=== PATIENT | female | born 1995 | race Caucasian/White ===

== ENCOUNTER 2022-07-20 19:18 | Inpatient (IN) ==
[2022-07-20] MEDS ORDERED: SODIUM CHLORIDE 0.9% 1000ML 1,000 ML IV ONE (19:45)
[2022-07-20] MEDS ORDERED: DEXTROSE 5% IV ONE ×2 (19:48→20:49)
[2022-07-20] MEDS ORDERED: ACETYLCYSTEINE IV ONE ×2 (19:48→20:49)
[2022-07-20] MEDS ORDERED: ACTIVATED CHARCOAL/SORBITOL 25 GM/120 ML TUBE PO STA (19:48)
[2022-07-20] MEDS ORDERED: AcetylCYSTEINE IV 21 HR REGIMEN (>40KG) IV STA (19:48)
--- NOTE | 2022-07-20 19:48 | Emergency Department Note ---
Impression & Plan Suicide attempt by acetaminophen overdose, Depression ED Provider Note Name: QUEENIE DAN Age: 27 Sex: F Arrives Via: Walk-In Informant: Patient, Mother ED Provider: Rangel Simpson MD Chief Complaint: Suicide attempt Impression: As per impression above Medical Decision Makin-year-old female with a history of depression/anxiety/PTSD who has been having worsening anxiety/depression over the last few weeks and increasing her dose of Zoloft. Attempted suicide by Tylenol overdose. Reports 30 tablets of 500 mg by mouth. Given that she was empirically started on N-acetylcysteine as this would be a lethal dose of Tylenol she had taken. She was also given charcoal. EKG is unremarkable rest of her labs are unremarkable and a drug screen is negative. She has no evidence of neurologic deficit and vital signs are stable. Her initial Tylenol level was undetectable but this was within an hour of overdose. She was monitored over the next few hours and repeat Tylenol level at 4 hours from ingestion is well within the nomogram. At this point I did confirm with poison center who agrees that stopping NAC is reasonable. She is now medically cleared. All the rest of her labs are unremarkable as well. I do not see any indication for need of hospitalization on a medical basis. She will need to be admitted to a psychiatric facility given her significant attempt at killing herself. I discussed this with her and she is agreeable to voluntary hospitalization. She was signed out to Dr. Joshi pending placement. Prior Medical Record and Triage/Nursing Notes reviewed by Me Additional history obtained from mother Differentials:Overdose of Tylenol amongst other medications considered, electrolyte imbalance, EKG/cardiac arrhythmia, multiple other pathologies considered. Vital Signs: reviewed and remarkable for mildly tachycardic on arrival Interventions: IV saline lock, 1 L normal saline bolus IV, N-acetylcysteine 21- hour regimen begun Labs:Reviewed and remarkable for Tylenol level within normal range at 4 hours postingestion multiple other labs including LFTs are unremarkable. EKG:As per my interpretation. Indication overdose. Normal sinus rhythm at 97 bpm with a QTC of 444. There is no ectopy nor ischemia. No previous EKGs for comparison. Cardiac/Tele Monitoring: Cardiac Monitoring: An Order was placed for continuous cardiac monitoring. The monitor shows a rate of 90 with a normal sinus rhythm. Consults: [facility] 7:45pm 1.6.23: Get EKG, Labs (salicylate/tyl/lft/etc). Give Charcoal now. NAC at discretion of ED doc for now, confirm need at 4 hour Tylenol level. Reviewed findings with poison control at 12:45 AM on 07.21.22 and they agree that at this point patient would be considered medically clear that NAC can be stopped. Plan: Disposition: Signed out to overnight ED physician pending placement Condition: Good History of Present Illness:27-year-old female arrives after an overdose at home. Patient states she has been feeling increasingly depressed throughout the holidays. She had recently switched to Zoloft for antidepressant given her history of depression and PTSD. Patient states increasing depression to the point where she decided to kill her self tonight. She counted out 30 tablets of 500 mg Tylenol. She then took the tablets knowing this was enough to kill her based on her research. She also drank some alcohol with this but cannot remember what the alcohol was. Denies any other drug use. Denies any attempt to harm her self with her Zoloft or other medications. Patient denies anyone else harming her. No hallucinations. Denies any current symptoms other than feeling a bit lightheaded. Denies any nausea, vomiting abdominal pain, chest pain, shortness of breath or other concerning signs or symptoms. No recent medical issues. Past Medical History:Anxiety/depression/PTSD Family History:Notes familial history of depression without history of suicide in the family Social History:No regular alcohol use, no tobacco use, no drug use. 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 Home Medications:Zoloft Allergies:No known drug allergies Vitals:Blood Pressure: 129/76, Pulse 123, RR 20, T 36.7C, O2 96% on RA Physical Exam: GENERAL: Patient is sad appearing and in no distress. EYES: No scleral icterus, unremarkable pupils. RESPIRATORY: No dyspnea. Clear to auscultation and equal bilaterally. No wheeze, no rhonchi. CARDIOVASCULAR: Regular rate and rhythm.No murmurs, rubs, gallops appreciated. GASTROINTESTINAL: Abdomen soft, non-tender, no peritonitis.Bowel sounds positive.No masses appreciated. BACK: No midline tenderness, no CVA tenderness EXTREMITIES: Normal motion all extremities, no cyanosis, no edema. Old cutting scars left forearm NEUROLOGIC: Alert and oriented, no focal weakness SKIN: No rash, no jaundice, no diaphoresis. PSYCH: Sad, depressed, admits suicidal ideation with attempt GCS: 15 ED Course: Times/Reassessments: Patient stable heart rate is come down nicely and she is in no distress. Repeat evaluations her mother is gone home. Patient states she is feeling better no nausea no abdominal pain and is agreeable to hospitalization for psychiatric management. Observation: The patient was placed in observation status at 7:45 PM on 07.20.22. Patient was reassessed multiple times and kept on the monitor throughout the entirety of the observation stay. Patient was stable receiving IV fluids as well as N- acetylcysteine. Repeat evaluation at 12:45 AM on 07.21.22 patient is calm cooperative and in no distress. Her vital signs are unremarkable. She is having no nausea, abdominal pain or other concerning signs or symptoms. Her repeat Tylenol level at this point is within normal range. She is considered medically cleared and will be disposition to psychiatric placement pending at this time. A total medical observation time of 5 hours. Rangel Simpson MD Past Med/Surg History Social History Smoking Status: Current every day smoker Home Meds Home Medications Medication Instructions Recorded Confirmed sertraline 50 mg tablet 50 mg PO DAILY 07/20/22 07/20/22 Results & Data (ED) Vital Signs Vital Signs - 24 hr 07/20/22 19:19 07/20/22 20:30 07/20/22 21:00 Temperature 36.7 C Temperature Source Temporal Artery Scan Pulse Rate 123 H Pulse Rate [Apical] 95 H 98 H Pulse Rate from SpO2 Sensor Pulse Rhythm [Apical] Regular Regular Pulse Strength [Apical] Normal Normal Respiratory Rate 20 17 16 Respiratory Effort / Characteristics Non-Labored Respiratory Depth Normal Normal Respiratory Pattern Regular Regular Blood Pressure 129/76 Blood Pressure [Right Arm] 120/67 110/77 Blood Pressure Mean 93 Blood Pressure Mean [Right Arm] 84 88 Blood Pressure Position [Right Arm] Pulse Oximetry 96 99 99 Oxygen Delivery Method Room Air Room Air Room Air Sepsis Recent Fever Within 48 Hours No Sepsis New/Unexplained Change in Mental Status No Sepsis Action Taken by Nursing No Action Required 07/20/22 21:30 07/20/22 22:00 07/20/22 22:30 Temperature Temperature Source Pulse Rate Pulse Rate [Apical] 92 H 99 H 97 H Pulse Rate from SpO2 Sensor Pulse Rhythm [Apical] Regular Regular Regular Pulse Strength [Apical] Normal Normal Normal Respiratory Rate 16 18 16 Respiratory Effort / Characteristics Non-Labored Non-Labored Non-Labored Respiratory Depth Normal Normal Normal Respiratory Pattern Regular Regular Regular Blood Pressure Blood Pressure [Right Arm] 127/73 124/89 116/78 Blood Pressure Mean Blood Pressure Mean [Right Arm] 91 100 90 Blood Pressure Position [Right Arm] Lying Lying Lying Pulse Oximetry 98 97 96 Oxygen Delivery Method Room Air Room Air Room Air Sepsis Recent Fever Within 48 Hours Sepsis New/Unexplained Change in Mental Status Sepsis Action Taken by Nursing 07/20/22 23:00 07/20/22 23:30 07/20/22 23:35 Temperature Temperature Source Pulse Rate 98 H 85 87 Pulse Rate [Apical] Pulse Rate from SpO2 Sensor 96 H 86 86 Pulse Rhythm [Apical] Pulse Strength [Apical] Respiratory Rate 19 22 26 H Respiratory Effort / Characteristics Respiratory Depth Respiratory Pattern Blood Pressure 115/78 119/72 Blood Pressure [Right Arm] Blood Pressure Mean 90 87 Blood Pressure Mean [Right Arm] Blood Pressure Position [Right Arm] Pulse Oximetry 97 100 98 Oxygen Delivery Method Sepsis Recent Fever Within 48 Hours Sepsis New/Unexplained Change in Mental Status Sepsis Action Taken by Nursing Laboratory Data 07/20/22 19:53 07/20/22 19:53 Lab Results 07/20/22 07/20/22 07/20/22 Range/Units 19:40 19:40 19:40 WBC (4.8-10.8) K/ul RBC (3.93-5.22) M/uL Hgb (12.0-16.0) g/dl Hct (34.1-44.9) % MCV (80.0-100.0) fL MCH (25.0-34.0) pg MCHC (32.0-36.0) g/dL RDW Std Deviation (36.4-46.3) fL RDW Coeff of Lenin (11.5-14.5) % Plt Count (130-400) K/uL MPV (9.4-12.3) fL Immature Gran % (Auto) % Neut % (Auto) % Lymph % (Auto) % Hamlin % (Auto) % Eos % (Auto) % Baso % (Auto) % Neut # (Auto) (1.4-6.5) K/uL Lymph # (Auto) (1.2-3.4) K/uL Hamlin # (Auto) (0.24-0.82) K/uL Eos # (Auto) (0-0.50) K/uL Baso # (Auto) (0-0.2) K/uL Immature Gran # (Auto) (0.00-0.02) K/uL PT (9.0-12.0) Seconds INR (0.9-1.1) APTT (21.0-31.0) Seconds PTT Ratio Sodium (136-145) mmol/L Potassium (3.5-5.1) mmol/L Chloride (98-107) mmol/L Carbon Dioxide (21-32) mmol/L Anion Gap (3-11) BUN (6-23) mg/dl Creatinine (0.6-1.2) mg/dl Est Cr Clr Drug Dosing ml/min Est GFR ( Amer) ml/min Est GFR (Non-Af Amer) ml/min BUN/Creatinine Ratio (10-20) Glucose (70-99(Fasting)) mg/dl Calcium (8.5-10.1) mg/dl Total Bilirubin (0.2-1.0) mg/dl AST (13-39) U/L ALT (7-52) U/L Alkaline Phosphatase (34-104) U/L Total Protein (6.0-8.3) gm/dl Albumin (3.4-5.0) gm/dl Globulin (2.5-4.0) gm/dl Albumin/Globulin Ratio (0.9-2) TSH (0.300-4.500) uIu/ml Urine Color Yellow Urine Appearance Clear (Clear) Urine pH 6.0 (4.5-7.5) Ur Specific [place] 1.008 (1.000-1.030) Urine Protein Negative (Negative) Urine Glucose (UA) Negative (Negative) Urine Ketones Negative (Negative) Urine Blood Negative (Negative) Urine Nitrite Negative (Negative) Urine Bilirubin Negative (Negative) Urine Urobilinogen Negative (Negative) Ur Leukocyte Esterase Negative (Negative) Urine Test Negative (Negative) Salicylates (3.0-30) mg/dl Urine Opiates Screen Neg (Neg) Ur Methadone, Qual Neg (Neg) Acetaminophen (10-30) ug/ml Urine Barbiturates Neg (Neg) Ur Phencyclidine (PCP) Neg (Neg) U Amphetamin/Meth Scrn Neg (Neg) MDMA (Ecstasy) Screen Neg (Neg) U Benzodiazepines Scrn Neg (Neg) Ur Cocaine Metabolite Neg (Neg) U Marijuana (THC) Screen Neg (Neg) Ethyl Alcohol mg/dL (<10.0) mg/dl SARS-CoV-2, RNA, NAAT (NEGATIVE) 07/20/22 07/20/22 07/20/22 Range/Units 19:53 19:53 19:53 WBC 10.00 (4.8-10.8) K/ul RBC 4.51 (3.93-5.22) M/uL Hgb 13.7 (12.0-16.0) g/dl Hct 41.0 (34.1-44.9) % MCV 90.9 (80.0-100.0) fL MCH 30.4 (25.0-34.0) pg MCHC 33.4 (32.0-36.0) g/dL RDW Std Deviation 41.6 (36.4-46.3) fL RDW Coeff of Lenin 12.4 (11.5-14.5) % Plt Count 389 (130-400) K/uL MPV 10.7 (9.4-12.3) fL Immature Gran % (Auto) 0.3 % Neut % (Auto) 67.6 % Lymph % (Auto) 22.3 % Hamlin % (Auto) 6.2 % Eos % (Auto) 2.7 % Baso % (Auto) 0.9 % Neut # (Auto) 6.76 H (1.4-6.5) K/uL Lymph # (Auto) 2.23 (1.2-3.4) K/uL Hamlin # (Auto) 0.62 (0.24-0.82) K/uL Eos # (Auto) 0.27 (0-0.50) K/uL Baso # (Auto) 0.09 (0-0.2) K/uL Immature Gran # (Auto) 0.03 H (0.00-0.02) K/uL PT (9.0-12.0) Seconds INR (0.9-1.1) APTT (21.0-31.0) Seconds PTT Ratio Sodium 139 (136-145) mmol/L Potassium 3.0 L (3.5-5.1) mmol/L Chloride 106 (98-107) mmol/L Carbon Dioxide 26 (21-32) mmol/L Anion Gap 7 (3-11) BUN 9 (6-23) mg/dl Creatinine 0.71 (0.6-1.2) mg/dl Est Cr Clr Drug Dosing 124.6 ml/min Est GFR ( Amer) 135.3 ml/min Est GFR (Non-Af Amer) 116.7 ml/min BUN/Creatinine Ratio 12.7 (10-20) Glucose 92 (70-99(Fasting)) mg/dl Calcium 9.5 (8.5-10.1) mg/dl Total Bilirubin 0.3 (0.2-1.0) mg/dl AST 19 (13-39) U/L ALT 26 (7-52) U/L Alkaline Phosphatase 60 (34-104) U/L Total Protein 8.5 H (6.0-8.3) gm/dl Albumin 4.7 (3.4-5.0) gm/dl Globulin 3.8 (2.5-4.0) gm/dl Albumin/Globulin Ratio 1.2 (0.9-2) TSH 1.379 (0.300-4.500) uIu/ml Urine Color Urine Appearance (Clear) Urine pH (4.5-7.5) Ur Specific [place] (1.000-1.030) Urine Protein (Negative) Urine Glucose (UA) (Negative) Urine Ketones (Negative) Urine Blood (Negative) Urine Nitrite (Negative) Urine Bilirubin (Negative) Urine Urobilinogen (Negative) Ur Leukocyte Esterase (Negative) Urine Test (Negative) Salicylates (3.0-30) mg/dl Urine Opiates Screen (Neg) Ur Methadone, Qual (Neg) Acetaminophen (10-30) ug/ml Urine Barbiturates (Neg) Ur Phencyclidine (PCP) (Neg) U Amphetamin/Meth Scrn (Neg) MDMA (Ecstasy) Screen (Neg) U Benzodiazepines Scrn (Neg) Ur Cocaine Metabolite (Neg) U Marijuana (THC) Screen (Neg) Ethyl Alcohol mg/dL (<10.0) mg/dl SARS-CoV-2, RNA, NAAT (NEGATIVE) 07/20/22 07/20/22 07/20/22 Range/Units 19:53 19:53 19:53 WBC (4.8-10.8) K/ul RBC (3.93-5.22) M/uL Hgb (12.0-16.0) g/dl Hct (34.1-44.9) % MCV (80.0-100.0) fL MCH (25.0-34.0) pg MCHC (32.0-36.0) g/dL RDW Std Deviation (36.4-46.3) fL RDW Coeff of Lenin (11.5-14.5) % Plt Count (130-400) K/uL MPV (9.4-12.3) fL Immature Gran % (Auto) % Neut % (Auto) % Lymph % (Auto) % Hamlin % (Auto) % Eos % (Auto) % Baso % (Auto) % Neut # (Auto) (1.4-6.5) K/uL Lymph # (Auto) (1.2-3.4) K/uL Hamlin # (Auto) (0.24-0.82) K/uL Eos # (Auto) (0-0.50) K/uL Baso # (Auto) (0-0.2) K/uL Immature Gran # (Auto) (0.00-0.02) K/uL PT 10.4 (9.0-12.0) Seconds INR 1.0 (0.9-1.1) APTT 25.1 (21.0-31.0) Seconds PTT Ratio 0.9 Sodium (136-145) mmol/L Potassium (3.5-5.1) mmol/L Chloride (98-107) mmol/L Carbon Dioxide (21-32) mmol/L Anion Gap (3-11) BUN (6-23) mg/dl Creatinine (0.6-1.2) mg/dl Est Cr Clr Drug Dosing ml/min Est GFR ( Amer) ml/min Est GFR (Non-Af Amer) ml/min BUN/Creatinine Ratio (10-20) Glucose (70-99(Fasting)) mg/dl Calcium (8.5-10.1) mg/dl Total Bilirubin (0.2-1.0) mg/dl AST (13-39) U/L ALT (7-52) U/L Alkaline Phosphatase (34-104) U/L Total Protein (6.0-8.3) gm/dl Albumin (3.4-5.0) gm/dl Globulin (2.5-4.0) gm/dl Albumin/Globulin Ratio (0.9-2) TSH (0.300-4.500) uIu/ml Urine Color Urine Appearance (Clear) Urine pH (4.5-7.5) Ur Specific [place] (1.000-1.030) Urine Protein (Negative) Urine Glucose (UA) (Negative) Urine Ketones (Negative) Urine Blood (Negative) Urine Nitrite (Negative) Urine Bilirubin (Negative) Urine Urobilinogen (Negative) Ur Leukocyte Esterase (Negative) Urine Test (Negative) Salicylates < 3.0 L (3.0-30) mg/dl Urine Opiates Screen (Neg) Ur Methadone, Qual (Neg) Acetaminophen < 3 L (10-30) ug/ml Urine Barbiturates (Neg) Ur Phencyclidine (PCP) (Neg) U Amphetamin/Meth Scrn (Neg) MDMA (Ecstasy) Screen (Neg) U Benzodiazepines Scrn (Neg) Ur Cocaine Metabolite (Neg) U Marijuana (THC) Screen (Neg) Ethyl Alcohol mg/dL 47.5 H (<10.0) mg/dl SARS-CoV-2, RNA, NAAT (NEGATIVE) 07/20/22 07/20/22 Range/Units 20:58 23:34 WBC (4.8-10.8) K/ul RBC (3.93-5.22) M/uL Hgb (12.0-16.0) g/dl Hct (34.1-44.9) % MCV (80.0-100.0) fL MCH (25.0-34.0) pg MCHC (32.0-36.0) g/dL RDW Std Deviation (36.4-46.3) fL RDW Coeff of Lenin (11.5-14.5) % Plt Count (130-400) K/uL MPV (9.4-12.3) fL Immature Gran % (Auto) % Neut % (Auto) % Lymph % (Auto) % Hamlin % (Auto) % Eos % (Auto) % Baso % (Auto) % Neut # (Auto) (1.4-6.5) K/uL Lymph # (Auto) (1.2-3.4) K/uL [place]lin # (Auto) (0.24-0.82) K/uL Eos # (Auto) (0-0.50) K/uL Baso # (Auto) (0-0.2) K/uL Immature Gran # (Auto) (0.00-0.02) K/uL PT (9.0-12.0) Seconds INR (0.9-1.1) APTT (21.0-31.0) Seconds PTT Ratio Sodium (136-145) mmol/L Potassium (3.5-5.1) mmol/L Chloride (98-107) mmol/L Carbon Dioxide (21-32) mmol/L Anion Gap (3-11) BUN (6-23) mg/dl Creatinine (0.6-1.2) mg/dl Est Cr Clr Drug Dosing ml/min Est GFR ( Amer) ml/min Est GFR (Non-Af Amer) ml/min BUN/Creatinine Ratio (10-20) Glucose (70-99(Fasting)) mg/dl Calcium (8.5-10.1) mg/dl Total Bilirubin (0.2-1.0) mg/dl AST (13-39) U/L ALT (7-52) U/L Alkaline Phosphatase (34-104) U/L Total Protein (6.0-8.3) gm/dl Albumin (3.4-5.0) gm/dl Globulin (2.5-4.0) gm/dl Albumin/Globulin Ratio (0.9-2) TSH (0.300-4.500) uIu/ml Urine Color Urine Appearance (Clear) Urine pH (4.5-7.5) Ur Specific [place] (1.000-1.030) Urine Protein (Negative) Urine Glucose (UA) (Negative) Urine Ketones (Negative) Urine Blood (Negative) Urine Nitrite (Negative) Urine Bilirubin (Negative) Urine Urobilinogen (Negative) Ur Leukocyte Esterase (Negative) Urine Test (Negative) Salicylates (3.0-30) mg/dl Urine Opiates Screen (Neg) Ur Methadone, Qual (Neg) Acetaminophen 25 (10-30) ug/ml Urine Barbiturates (Neg) Ur Phencyclidine (PCP) (Neg) U Amphetamin/Meth Scrn (Neg) MDMA (Ecstasy) Screen (Neg) U Benzodiazepines Scrn (Neg) Ur Cocaine Metabolite (Neg) U Marijuana (THC) Screen (Neg) Ethyl Alcohol mg/dL (<10.0) mg/dl SARS-CoV-2, RNA, NAAT NEGATIVE (NEGATIVE) Administered Medications Discontinued Medications Acetylcysteine (Acetylcysteine Iv 21 Hr Regimen (>40kg)) 1 each IV NOW STA; Protocol Stop: 07/20/22 19:49 Last Admin: 07/21/22 01:10 Dose: Not Given Documented By: IRVIN Charcoal/Sorbitol (Activated Charcoal/Sorbitol 25 Gm/120 Ml Tube) 50 gm PO NOW STA Stop: 07/20/22 19:49 Last Admin: 07/20/22 20:13 Dose: 50 gm Documented By: YANG Sodium Chloride (Nss 1000ml) 1,000 mls @ 999 mls/hr IV .Q1H1M ONE Stop: 07/20/22 20:45 Last Infusion: 07/20/22 21:01 Dose: 0 mls/hr Documented By: Admin: 07/20/22 20:05 Dose: 999 mls/hr Documented By: YANG Acetylcysteine 11,520 mg/ (Dextrose) 257.6 mls @ 200 mls/hr IV ONCE ONE Stop: 07/20/22 21:05 Last Infusion: 07/20/22 21:32 Dose: 0 mls/hr Documented By: Admin: 07/20/22 20:25 Dose: 200 mls/hr Documented By: YANG Acetylcysteine 3,840 mg/ (Dextrose) 519.2 mls @ 125 mls/hr IV ONCE ONE Stop: 07/21/22 00:58 Last Admin: 07/20/22 21:33 Dose: 125 mls/hr Documented By: BETH Ondansetron HCl (Ondansetron Inj 2 Mg/Ml 2 Ml Vial) 4 mg IV NOW STA Stop: 07/20/22 20:00 Last Admin: 07/20/22 20:05 Dose: 4 mg Documented By: YANG Discharge Plan Visit Data Chief Complaint: Overdose (Intentional) Stated Complaint: REF BY DOC, POTENTIAL OVERDOSE ED Provider: Rangel Simpson Discharge Problem: Suicide attempt by acetaminophen overdose, Depression Forms Stand Alone Forms: [facility], Suicide Prevention Resources Prescriptions Prescriptions: No Action sertraline 50 mg tablet 50 mg PO DAILY Referrals Referrals: PCP,NO [Primary Care Provider] - : Suicide attempt by acetaminophen overdose Qualifiers: Encounter type: initial encounter Qualified Code(s): T39.1X2A - Poisoning by 4- Aminophenol derivatives, intentional self-harm, initial encounter Depression Qualifiers: Depression Type: major depressive disorder Major depression recurrence: recurrent Active/Remission status: currently active Major depression episode severity: severe Psychotic features: without psychotic features Qualified Code(s): F33.2 - Major depressive disorder, recurrent severe without psychotic features
[2022-07-20] MEDS ORDERED: ONDANSETRON INJ 2 MG/ML 2 ML VIAL IV STA (19:59)
[2022-07-20 20:04] LABS: Basophils # (auto) 0.09 K/uL (0-0.2); Basophils % (auto) 0.9 %; Eosinophils # (auto) 0.27 K/uL (0-0.50); Eosinophils % (auto) 2.7 %; Hemoglobin 13.7 g/dl (12.0-16.0); Immature Granulocytes # (auto) 0.03 K/uL (0.00-0.02); Immature Granulocytes % (auto) 0.3 %; Lymphocytes # (auto) 2.23 K/uL (1.2-3.4); Lymphocytes % (auto) 22.3 %; Mean Corpuscular Hemoglobin 30.4 pg (25.0-34.0); Mean Corpuscular Hgb Conc 33.4 g/dL (32.0-36.0); Mean Corpuscular Volume 90.9 fL (80.0-100.0); Mean Platelet Volume 10.7 fL (9.4-12.3); Monocytes # (auto) 0.62 K/uL (0.24-0.82); Monocytes % (auto) 6.2 %; Neutrophils # (auto) 6.76 K/uL (1.4-6.5); Neutrophils % (auto) 67.6 %; Platelet Count 389 K/uL (130-400); RDW Coefficient of Variation 12.4 % (11.5-14.5); RDW Standard Deviation 41.6 fL (36.4-46.3); Red Blood Count 4.51 M/uL (3.93-5.22)
[2022-07-20 20:22] LABS: Appearance Urine Clear (Clear); Bilirubin Urine Negative (Negative); Blood Urine Negative (Negative); Color Urine Yellow; Glucose Urine UA Negative (Negative); Ketones Urine Negative (Negative); Leukocyte Esterase Urine Negative (Negative); Nitrite Urine Negative (Negative); Protein Urine Negative (Negative); Specific Gravity Urine 1.008 (1.000-1.030); Urobilinogen Urine Negative (Negative)
[2022-07-20 20:23] LABS: Pregnancy Test, Urine Negative (Negative)
[2022-07-20 20:31] LABS: Acetaminophen < 3 ug/ml (10-30); Salicylate < 3.0 mg/dl (3.0-30)
[2022-07-20 20:45] LABS: Amphetamines+Metham, Urine Neg (Neg); Barbiturates, Urine Neg (Neg); Benzodiazepine, Urine Neg (Neg); Cocaine, Urine Neg (Neg); MDMA (Ecstacy), Urine Neg (Neg); Methadone, Urine Neg (Neg); Opiate, Urine Neg (Neg); Phencyclidine, Urine Neg (Neg)
[2022-07-20 20:46] LABS: Albumin Globulin Ratio 1.2 (0.9-2); Albumin Level 4.7 gm/dl (3.4-5.0); BUN Creatinine Ratio 12.7 (10-20); Bilirubin,Total 0.3 mg/dl (0.2-1.0); Calcium 9.5 mg/dl (8.5-10.1); Creatinine Clr Calc Pharmacy 124.6 ml/min; Est GFR (African American) 135.3 ml/min; Est GFR (Non-African American) 116.7 ml/min; Globulin 3.8 gm/dl (2.5-4.0); Total Protein 8.5 gm/dl (6.0-8.3)
[2022-07-20 23:43] LABS: Partial Thromboplastin Ratio 0.9; Partial Thromboplastin Time 25.1 Seconds (21.0-31.0); Prothrombin Time 10.4 Seconds (9.0-12.0)
[2022-07-21] MEDS ORDERED: DEXTROSE 5% IV ONE (00:49)
[2022-07-21] MEDS ORDERED: ACETYLCYSTEINE IV ONE (00:49)
--- NOTE | 2022-07-21 06:26 | Emergency Department Note ---
ED Visit Note Date and Time: 07/21/2022 620: Interval History: Sign out received from Dr. Simpson who reviewed details of the encounter. Patient was pending bed placement. The patient is a voluntary admission after a Tylenol overdose. Summary: Patient was re-evaluated at 230 and vital signs reviewed. The patient rested comfortably overnight. The patient requests a local facility. She is voluntary at this time. Disposition: The staff from [facility] will evaluate her after 715 this morning Case will be signed out to Dr. Cleaning. . : Suicide attempt by acetaminophen overdose Qualifiers: Encounter type: initial encounter Qualified Code(s): T39.1X2A - Poisoning by 4- Aminophenol derivatives, intentional self-harm, initial encounter Depression Qualifiers: Depression Type: major depressive disorder Major depression recurrence: recurrent Active/Remission status: currently active Major depression episode severity: severe Psychotic features: without psychotic features Qualified Code(s): F33.2 - Major depressive disorder, recurrent severe without psychotic features
[2022-07-21] MEDS ORDERED: hydrOXYzine HCl 25 MG TAB PO PRN ×2 (10:15)
[2022-07-21] MEDS ORDERED: BISMUTH SUBSALICYLATE LIQD 236 ML PO PRN (10:15)
[2022-07-21] MEDS ORDERED: MAGNESIUM HYDROXIDE SUSP 30 ML UDC PO PRN (10:15)
[2022-07-21] MEDS ORDERED: SODIUM CHLORIDE 0.65% NA SOLN 45 ML (OCEAN) PRN (10:15)
[2022-07-21] MEDS ORDERED: ALUMINUM/MAGNESIUM SUSP 30 ML UDC PO PRN (10:15)
--- NOTE | 2022-07-21 13:23 | History & Physical ---
Date of Service July 21, 2022 Impression / Recommendations Impression Kenisha is a 27 year old with a history of MDD and PTSD admitted following a suicide attempt in the context of worsening depression, low self-worth and chronic negative self-talk. Diagnostically consistent with MDD with anxious distress vs persistent depressive disorder as well as QUYEN, social anxiety and PTSD. May be component of trauma-related cluster B traits with high emotionally reactivity and difficulty regulating this. She is deemed unstable and requires psychiatric hospitalization for diagnostic clarification, safety and stabilization, medication management and development of further coping skills. Discussed medication treatment options in detail. Discussed risks, benefits and alternatives. Patient would like continue consented to sertraline for MDD, QUYEN, PTSD for now. No evidence that recent initiation contributed to SI or attempt but rather recent holiday celebrations and difficulty with depressive symptoms. Reviewed side effects including but not limited to: GI, WEBER, sexual side effects, and counseled on black box warning of potential for emergence of or increased SI and need to let staff know should this occur or should they feel unsafe. Also discussed importance of seeking emergency care following discharge if this side effect occurs in the future. (1) Suicide attempt by acetaminophen overdose: Encounter type: initial encounter Qualified Code(s): T39.1X2A - Poisoning by 4-Aminophenol derivatives, intentional self-harm, initial encounter (2) MDD (major depressive disorder), recurrent episode, severe: (3) Generalized anxiety disorder with panic attacks: (4) Post traumatic stress disorder (PTSD): (5) Self-harming behavior: Plan 07/21/2022: The patient was admitted to the [facility] ([facility]) on q15 min checks (behavioral with suicide precautions) for safety. The patient will participate in group, recreational, and milieu therapies and will be offered additional individual and family sessions as clinically appropriate. -Lisa BPD screen -Continue with sertraline 50mg qd for now -She will discuss with family possible past medication trials in family members that have been helpful -Consider augmentation with Wellbutrin given possible past benefit Inventory Assets Strengths: supportive relationships, willing to get treatment, good rapport with outpt providers, resilient/trauma survivor Needs: safety and stabilization, medication adjustment, additional coping skills, increased outpatient services Suicide Risk Level Suicide Risk Level: High-Moderate (q15 min suicide checks) (High-Moderate due to severe depression with suicide attempt prior to admission but feels safe in the hospital, able to safety contract and agrees to let nursing/staff know should they develop plan, intent or feel unable to remain safe.) Suicide Risk Level Comments: Risk Factors Assessment Male: No : Yes Do You Have Access To A Gun?: No Health Problems: No Mental Health Diagnoses: Yes Substance Use Disorders: No Previous Attempt: Yes Family History of Suicide: No Previous Psychiatric Hospitalization: No Protective Factors Assessment Employed: Yes (Part-time at [employer]) Stable Relationships: Yes Supportive Family: Yes Good Rapport with Provider: Yes Psychiatric History Identifying Data KENISHA DAN is a 27-year-old F who currently lives in [place] with her mom and step-dad and brother, has a history of depression and PTSD, and was admitted on 07/21/22 09:40 on a 201 voluntary commitment for suicide attempt via overdose. Chief Complaint "I'm kind of numb right now". History of Present Illness Kenisha presents for psychiatric admission for worsening depression and suicide attempt via overdose of acetaminophen. She presented to the ED yesterday at the recommendation of her therapist after reaching out after ingesting approximately 30 tabs of acetaminophen 500mg and drinking some alcohol. She recalls counting the tabs but thinks it could have been less than 30 noting "it was a good handful". She had researched ways to using Tylenol, "in that moment" and learned it takes 15,00mg to cause serious harm to the liver. She has experienced chronic SI intermittently for many years but decided to pursue it in that moment due to an argument with her mom and feeling like "she pointed out a lot of my self-esteem issues" that have built up over time in addition to "self deprecating thoughts I provide myself". She struggled with her mom's advice to try to work through her depression as this made her feel like "everyone else is able to get over their depression but me" and drank vodka for "liquid courage" and then decided to take the tylenol. After taking the tylenol "I had a moment of realizing what I did and a brief moment of regretting it" so she reached out to her therapist. She is now regretful of the attempt though continues to feel "numb". She has a lot of chronic self-deprecating thoughts about being a jonatan lure, not being as independent as she believes she should be, and not liking aspects of her physical appearance. She started seeing a provider at [place] about one month ago. She has been cross-tapering from Paxil to sertraline. The sertraline dose was increased to 50mg on 07/17/2022. She endorses chronic depressive symptoms including tearfulness, anhedonia, decreased motivation, self-guilt, helplessness, hopelessness, decreased energy, decreased appetite, and increased sleep. Intermittent suicidal thoughts over the years when depression is especially severe. She also endorses symptoms of anxi ety including generalized worries, avoidance (especially driving), discomfort in social settings, easily overwhelmed and panic attacks every few months with SOB. Psychiatric ROS notable for no current nor history of symptoms of justin, psychosis, PTSD, OCD. History of self-harm via cutting with a razor on her arms, last was on Renea and as a teenager tried to maintain low weight for athletics through restricting but none since then. No history of binging nor purging. Past Psychiatric History Current Psychiatric Diagnosis: MDD and PTSD Outpatient Services: Erin OROPEZA at [place] for psychiatric care. Quita at [facility] for therapy for the last few months. Previous Psych Admissions: n/a Do You Have Access To A Gun?: No History of Previous Suicide Attempt: No Describe Attempts in the Past: had rehearsal of researching suffocation with helium,ordered mask & He Past Medication Trials: Paxil-wasn't working, Wellbutrin-about 1 year ago but stopped because mood improved, possibly Buspar for anxiety Past Head Trauma/Neuro History History of Concussion/Seizure: No Allergies Allergy/AdvReac Type Severity Reaction Status Date / Time No Known Allergies Allergy Verified 07/21/22 13:19 Home Medications Medication Instructions Recorded Confirmed Type sertraline 50 mg tablet 50 mg PO DAILY 07/20/22 07/20/22 History Family History Family History of: Depression (mom) and Other-List under Comment (step-father with PTSD) Alcohol History Hx of Alcohol Use Over the Past 12 Months: Yes (Social) AUDIT Total Score: 3 drinks alcohol a few times per month Smoking Use Have You Smoked or Used Tobacco Products in the Last 30 Days: No Substance History Hx of Prescription Med Misuse Over the Past 12 Months: No Hx of Over the Counter Med Misuse Over the Past 12 Months: Yes (Tylenol overdose on 07/20/21) Hx of Inhalent Misuse Over the Past 12 Months: No Hx of Organic Substance Use Over the Past 12 Months: No Hx of Illegal Substances/Street Drug Use Over Past 12 Months: No Problems as a Result of Past Substance Use: None Identified Personal History Living Arrangements: Home Childhood: Has a younger brother. Has step-sisters. Her mother and father are . No relationship with her biological father. Close with her mom. On and off relationship with her step-dad. 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[employer]) Marital Status: Single Beliefs That Will Affect Care: None Current Legal Problems: No Hx Legal Problems: No Hx Traumatic Life Events: Yes (young age trauma) Patient History Medical History (Updated 07/21/22 @ 15:34 by Herlinda Carroll MD) Self-harming behavior Social History Preferred Language: Bangladeshi Communication Ability: Effective Data Management Manager Required: No Beliefs That Will Affect Care: None Feels Safe at Home: Yes Gender Identity: Female Assistive Devices: None Review of Systems Review of Systems: All systems reviewed & are unremarkable except as noted in HPI & below Physical Exam Psychiatric: Orientation: alert and oriented x 3 Apperance: appropriately dressed and appropriately groomed Eye Contact: good eye contact Motor Behavior: no abnormal motor movements Speech: normal rate/rhythm/volume of speech (soft spoken ) Affect: + depressed affect and + anxious affect Mood: + depressed mood and + anxious mood Thought Process: goal directed thought process Thought Content: reality based without delusions Suicidal Thoughts: denies suicidal plan and denies suicidal intent; + reports suicidal thoughts (intermittent, s/p overdose ) Homicidal Thoughts: denies homicidal thoughts Hallucinations: no auditory hallucinations and no visual hallucinations Cognition: recent memory grossly intact, remote memory grossly intact, attention grossly intact and language grossly intact Estimated Intelligence: consistent with education level Insight: + fair insight Judgement: + limited judgement Vital Signs (Past 24 Hours): Last Vital Signs Temp 36.7 C 07/21/22 10:17 Pulse 83 07/21/22 10:17 Resp 14 07/21/22 10:17 BP 119/85 07/21/22 10:17 Pulse Ox 97 07/21/22 10:17 O2 Del Method 07/21/22 10:17 Exam Statement: A physical exam was performed in the ED by Dr. Simpson for the purposes of medical clearance. I accept that physical as correct and adequate for the purposes of the inpatient physical exam. Results & Data ([facility]) Laboratory Results Laboratory Results - last 24 hr 07/20/22 07/20/22 07/20/22 19:40 19:40 19:40 WBC RBC Hgb Hct MCV MCH MCHC RDW Std Deviation RDW Coeff of Lenin Plt Count MPV Immature Gran % (Auto) Neut % (Auto) Lymph % (Auto) Garden % (Auto) Eos % (Auto) Baso % (Auto) Neut # (Auto) Lymph # (Auto) Garden # (Auto) Eos # (Auto) Baso # (Auto) Immature Gran # (Auto) PT INR APTT PTT Ratio Sodium Potassium Chloride Carbon Dioxide Anion Gap BUN Creatinine Est Cr Clr Drug Dosing Est GFR ( Amer) Est GFR (Non-Af Amer) BUN/Creatinine Ratio Glucose Calcium Total Bilirubin AST ALT Alkaline Phosphatase Total Protein Albumin Globulin Albumin/Globulin Ratio TSH Urine Color Yellow Urine Appearance Clear Urine pH 6.0 Ur Specific Bellflower 1.008 Urine Protein Negative Urine Glucose (UA) Negative Urine Ketones Negative Urine Blood Negative Urine Nitrite Negative Urine Bilirubin Negative Urine Urobilinogen Negative Ur Leukocyte Esterase Negative Urine Test Negative Salicylates Urine Opiates Screen Neg Ur Methadone, Qual Neg Acetaminophen Urine Barbiturates Neg Ur Phencyclidine (PCP) Neg U Amphetamin/Meth Scrn Neg MDMA (Ecstasy) Screen Neg U Benzodiazepines Scrn Neg Ur Cocaine Metabolite Neg U Marijuana (THC) Screen Neg Ethyl Alcohol mg/dL SARS-CoV-2, RNA, NAAT 07/20/22 07/20/22 07/20/22 19:53 19:53 19:53 WBC 10.00 RBC 4.51 Hgb 13.7 Hct 41.0 MCV 90.9 MCH 30.4 MCHC 33.4 RDW Std Deviation 41.6 RDW Coeff of Lenin 12.4 Plt Count 389 MPV 10.7 Immature Gran % (Auto) 0.3 Neut % (Auto) 67.6 Lymph % (Auto) 22.3 Garden % (Auto) 6.2 Eos % (Auto) 2.7 Baso % (Auto) 0.9 Neut # (Auto) 6.76 H Lymph # (Auto) 2.23 Garden # (Auto) 0.62 Eos # (Auto) 0.27 Baso # (Auto) 0.09 Immature Gran # (Auto) 0.03 H PT INR APTT PTT Ratio Sodium 139 Potassium 3.0 L Chloride 106 Carbon Dioxide 26 Anion Gap 7 BUN 9 Creatinine 0.71 Est Cr Clr Drug Dosing 124.6 Est GFR ( Amer) 135.3 Est GFR (Non-Af Amer) 116.7 BUN/Creatinine Ratio 12.7 Glucose 92 Calcium 9.5 Total Bilirubin 0.3 AST 19 ALT 26 Alkaline Phosphatase 60 Total Protein 8.5 H Albumin 4.7 Globulin 3.8 Albumin/Globulin Ratio 1.2 TSH 1.379 Urine Color Urine Appearance Urine pH Ur Specific Bellflower Urine Protein Urine Glucose (UA) Urine Ketones Urine Blood Urine Nitrite Urine Bilirubin Urine Urobilinogen Ur Leukocyte Esterase Urine Test Salicylates Urine Opiates Screen Ur Methadone, Qual Acetaminophen Urine Barbiturates Ur Phencyclidine (PCP) U Amphetamin/Meth Scrn MDMA (Ecstasy) Screen U Benzodiazepines Scrn Ur Cocaine Metabolite U Marijuana (THC) Screen Ethyl Alcohol mg/dL SARS-CoV-2, RNA, NAAT 07/20/22 07/20/22 07/20/22 19:53 19:53 19:53 WBC RBC Hgb Hct MCV MCH MCHC RDW Std Deviation RDW Coeff of Lenin Plt Count MPV Immature Gran % (Auto) Neut % (Auto) Lymph % (Auto) Garden % (Auto) Eos % (Auto) Baso % (Auto) Neut # (Auto) Lymph # (Auto) Garden # (Auto) Eos # (Auto) Baso # (Auto) Immature Gran # (Auto) PT 10.4 INR 1.0 APTT 25.1 PTT Ratio 0.9 Sodium Potassium Chloride Carbon Dioxide Anion Gap BUN Creatinine Est Cr Clr Drug Dosing Est GFR ( Amer) Est GFR (Non-Af Amer) BUN/Creatinine Ratio Glucose Calcium Total Bilirubin AST ALT Alkaline Phosphatase Total Protein Albumin Globulin Albumin/Globulin Ratio TSH Urine Color Urine Appearance Urine pH Ur Specific Bellflower Urine Protein Urine Glucose (UA) Urine Ketones Urine Blood Urine Nitrite Urine Bilirubin Urine Urobilinogen Ur Leukocyte Esterase Urine Test Salicylates < 3.0 L Urine Opiates Screen Ur Methadone, Qual Acetaminophen < 3 L Urine Barbiturates Ur Phencyclidine (PCP) U Amphetamin/Meth Scrn MDMA (Ecstasy) Screen U Benzodiazepines Scrn Ur Cocaine Metabolite U Marijuana (THC) Screen Ethyl Alcohol mg/dL 47.5 H SARS-CoV-2, RNA, NAAT 07/20/22 07/20/22 20:58 23:34 WBC RBC Hgb Hct MCV MCH MCHC RDW Std Deviation RDW Coeff of Lenin Plt Count MPV Immature Gran % (Auto) Neut % (Auto) Lymph % (Auto) Garden % (Auto) Eos % (Auto) Baso % (Auto) Neut # (Auto) Lymph # (Auto) Garden # (Auto) Eos # (Auto) Baso # (Auto) Immature Gran # (Auto) PT INR APTT PTT Ratio Sodium Potassium Chloride Carbon Dioxide Anion Gap BUN Creatinine Est Cr Clr Drug Dosing Est GFR ( Amer) Est GFR (Non-Af Amer) BUN/Creatinine Ratio Glucose Calcium Total Bilirubin AST ALT Alkaline Phosphatase Total Protein Albumin Globulin Albumin/Globulin Ratio TSH Urine Color Urine Appearance Urine pH Ur Specific Bellflower Urine Protein Urine Glucose (UA) Urine Ketones Urine Blood Urine Nitrite Urine Bilirubin Urine Urobilinogen Ur Leukocyte Esterase Urine Test Salicylates Urine Opiates Screen Ur Methadone, Qual Acetaminophen 25 Urine Barbiturates Ur Phencyclidine (PCP) U Amphetamin/Meth Scrn MDMA (Ecstasy) Screen U Benzodiazepines Scrn Ur Cocaine Metabolite U Marijuana (THC) Screen Ethyl Alcohol mg/dL SARS-CoV-2, RNA, NAAT NEGATIVE Current Inpatient Medications Current Inpatient Medications: Current Inpatient Medications Al Hydrox/Mg Hydrox/Simethicone (Aluminum/Magnesium Susp 30 Ml Udc) 30 ml PO Q4H PRN PRN Reason: GI Upset Stop: 08/20/22 10:14 Bismuth Subsalicylate (Bismuth Subsalicylate Liqd 236 Ml) 15 ml PO PRN PRN PRN Reason: Loose Stool Stop: 08/20/22 10:14 Hydroxyzine HCl (Hydroxyzine Hcl 25 Mg Tab) 50 mg PO HSZ PRN PRN Reason: Insomnia Stop: 08/20/22 10:14 Hydroxyzine HCl (Hydroxyzine Hcl 25 Mg Tab) 25 mg PO Q4H PRN PRN Reason: Anxiety Stop: 08/20/22 10:14 Magnesium Hydroxide (Magnesium Hydroxide Susp 30 Ml Udc) 30 ml PO DAILY PRN PRN Reason: Constipation Stop: 08/20/22 10:14 Sodium Chloride (Sodium Chloride 0.65% Na Soln 45 Ml ([place])) 1 - 2 sprays NA PRN PRN PRN Reason: Nasal Dryness/Congestion Stop: 08/20/22 10:14
--- NOTE | 2022-07-21 15:26 | Emergency Department Note ---
ED Visit Note Signed out to me awaiting admission. Admitted to [facility]. . . : Suicide attempt by acetaminophen overdose Qualifiers: Encounter type: initial encounter Qualified Code(s): T39.1X2A - Poisoning by 4- Aminophenol derivatives, intentional self-harm, initial encounter Depression Qualifiers: Depression Type: major depressive disorder Major depression recurrence: recurrent Active/Remission status: currently active Major depression episode severity: severe Psychotic features: without psychotic features Qualified Code(s): F33.2 - Major depressive disorder, recurrent severe without psychotic features
[2022-07-22] MEDS ORDERED: SERTRALINE HCL 50 MG TABLET PO SCH (09:00)
--- NOTE | 2022-07-22 09:17 | Psychiatric Progress Note ---
Date of Service July 22, 2022 Impression / Recommendations Impression Kenisha is a 27 year old with a history of MDD and PTSD admitted following a suicide attempt in the context of worsening depression, low self-worth and chronic negative self-talk. Diagnostically consistent with MDD with anxious distress vs persistent depressive disorder as well as QUYEN, social anxiety and PTSD. May be component of trauma-related cluster B traits with high emotionally reactivity and difficulty regulating this. She is deemed unstable and requires psychiatric hospitalization for diagnostic clarification, safety and stabilization, medication management and development of further coping skills. MNPR due to significant social anxiety and discomfort around peers 07/22/22: Still with depression, significant anxiety and isolative to her room. Remains safety concerns, 72 hour notice signed. Discussed medication treatment options in detail. Discussed risks, benefits and alternatives. Patient consented to fluoxetine for MDD, QUYEN, PTSD. Reviewed side effects including but not limited to: GI, WEBER, sexual side effects, and counseled on black box warning of potential for emergence of or increased SI and need to let staff know should this occur or should they feel unsafe. Also discussed importance of seeking emergency care following discharge if this side effect occurs in the future. (1) Suicide attempt by acetaminophen overdose: (2) MDD (major depressive disorder), recurrent episode, severe: (3) Generalized anxiety disorder with panic attacks: (4) Post traumatic stress disorder (PTSD): (5) Self-harming behavior: Plan 07/22/2022: Discontinue sertraline. Start fluoxetine 20mg qd. 07/21/2022: The patient was admitted to the [facility] ([facility] mental [facility] unit) on q15 min checks (behavioral with suicide precautions) for safety. The patient will participate in group, recreational, and milieu therapies and will be offered additional individual and family sessions as clinically appropriate. -Gonsalo BPD screen -Continue with sertraline 50mg qd for now -She will discuss with family possible past medication trials in family members that have been helpful -Consider augmentation with Wellbutrin given possible past benefit Inventory Assets Strengths: supportive relationships, willing to get treatment, good rapport with outpt providers, resilient/trauma survivor Needs: safety and stabilization, medication adjustment, additional coping skills, increased outpatient services Suicide Risk Level Suicide Risk Level: High-Moderate (q15 min suicide checks) (High-Moderate due to severe depression with suicide attempt prior to admission but feels safe in the hospital, able to safety contract and agrees to let nursing/staff know should they develop plan, intent or feel unable to remain safe.) Suicide Risk Level Comments: Risk Factors Assessment Male: No : Yes Do You Have Access To A Gun?: No Health Problems: No Mental Health Diagnoses: Yes Substance Use Disorders: No Previous Attempt: Yes Family History of Suicide: No Previous Psychiatric Hospitalization: No Protective Factors Assessment Employed: Yes (Part-time at [employer]) Stable Relationships: Yes Supportive Family: Yes Good Rapport with Provider: Yes Interval History Identifying Information KENISHA DAN is a 27-year-old F who currently lives in [place] with her mom and step-dad and brother, has a history of depression and PTSD, and was admitted on 07/21/22 09:40 on a 201 voluntary commitment for suicide attempt via overdose. Chief Complaint "I'm alright". Review of Systems Sleep Information Total Hours of Sleep: 7 Meal Information Percent Meal Consumed - Dinner: 100 Subjective Subjective Patient was seen & assessed and interval progress reviewed with treatment team nursing and social work. Put in 72 hour notice last night. Declined all groups yesterday. Took prn Vistaril at bedtime which was helpful for anxiety. Today r eports anxiety and homesickness from being in the hospital, wonders why she can't go home. Reviewed safety concerns given seriousness of overdose attempt and goals of ensuring outpatient followup (ideally with increase to weekly therapy) and safely tolerating medication and with additional coping skills before I feel she could be safely discharged. She understands this and agrees to participate in groups today. She talked with her mother and discovered family hx of positive response to fluoxetine. She's interested in trying this. Reviewed Gonsalo BPD screen which was positive for all symptoms except relationships with breakups and fights. Discussed that results can overlap significantly with depression/anxiety/PTSD but certainly suggest level of high emotional reactivity which can be seen in anxiety and PTSD. She is interested in learning new coping skills to avoid self-harm. Physical Exam Psychiatric Orientation: alert and oriented x 3 Apperance: appropriately dressed and + disheveled Eye Contact: + fair eye contact Motor Behavior: no abnormal motor movements Speech: normal rate/rhythm/volume of speech (soft spoken ) Affect: + depressed affect and + anxious affect Mood: + depressed mood and + anxious mood Thought Process: goal directed thought process Thought Content: reality based without delusions Suicidal Thoughts: denies suicidal plan and denies suicidal intent; + reports suicidal thoughts (intermittent, s/p overdose ) Homicidal Thoughts: denies homicidal thoughts Hallucinations: no auditory hallucinations and no visual hallucinations Cognition: recent memory grossly intact, remote memory grossly intact, attention grossly intact and language grossly intact Estimated Intelligence: consistent with education level Insight: + limited insight Judgement: + limited judgement Vital Signs (Past 24 Hours) Last Vital Signs Temp 37 C 07/22/22 06:42 Pulse 82 07/22/22 06:43 Resp 18 07/22/22 06:42 BP 101/67 07/22/22 06:43 Pulse Ox 97 07/21/22 10:17 O2 Del Method 07/21/22 10:17 Results & Data ([facility]) Current Inpatient Medications Current Inpatient Medications: Current Inpatient Medications Al Hydrox/Mg Hydrox/Simethicone (Aluminum/Magnesium Susp 30 Ml Udc) 30 ml PO Q4H PRN PRN Reason: GI Upset Stop: 08/20/22 10:14 Bismuth Subsalicylate (Bismuth Subsalicylate Liqd 236 Ml) 15 ml PO PRN PRN PRN Reason: Loose Stool Stop: 08/20/22 10:14 Hydroxyzine HCl (Hydroxyzine Hcl 25 Mg Tab) 50 mg PO HSZ PRN PRN Reason: Insomnia Stop: 08/20/22 10:14 Last Admin: 07/21/22 21:06 Dose: 50 mg Hydroxyzine HCl (Hydroxyzine Hcl 25 Mg Tab) 25 mg PO Q4H PRN PRN Reason: Anxiety Stop: 08/20/22 10:14 Magnesium Hydroxide (Magnesium Hydroxide Susp 30 Ml Udc) 30 ml PO DAILY PRN PRN Reason: Constipation Stop: 08/20/22 10:14 Sertraline HCl (Sertraline Hcl 50 Mg Tablet) 50 mg PO DAILY FAN Stop: 08/21/22 08:59 Sodium Chloride (Sodium Chloride 0.65% Na Soln 45 Ml ([place])) 1 - 2 sprays NA PRN PRN PRN Reason: Nasal Dryness/Congestion Stop: 08/20/22 10:14 Mental Health & Subst Abuse Tx Therapist Name of Therapist: [facility]a Gerber Vascular Physician Name of Vascular Physician: None Post Discharge Appointments Primary Care Physician Name Of Family Doctor/PCP: Dr. Cristina Galindo (1) Suicide attempt by acetaminophen overdose Encounter type: initial encounter Qualified Code(s): T39.1X2A - Poisoning by 4-Aminophenol derivatives, intentional self-harm, initial encounter
[2022-07-22] MEDS ORDERED: IBUPROFEN 600 MG TAB PO PRN (10:26)
[2022-07-22] MEDS: FLUoxetine HCL 20 MG CAP PO SCH (10:40)
--- NOTE | 2022-07-22 21:41 | Electrocardiogram Report ---
Test Reason : Blood Pressure : / mmHG Vent. Rate : 097 BPM Atrial Rate : 097 BPM P-R Int : 146 ms QRS Dur : 076 ms QT Int : 350 ms P-R-T Axes : 051 054 027 degrees QTc Int : 444 ms Normal sinus rhythm Normal ECG No previous ECGs available Confirmed by Devon Chiu ([id number]) on 07/22/2022 9:41:17 PM Referred By: REFERRED SELF Confirmed By:Devon Chiu
[2022-07-23] MEDS: FLUoxetine HCL 20 MG CAP PO SCH (08:42)
--- NOTE | 2022-07-23 15:43 | Psychiatric Progress Note ---
Date of Service July 23, 2022 Impression / Recommendations Impression Kenisha is a 27 year old with a history of MDD and PTSD admitted following a suicide attempt in the context of worsening depression, low self-worth and chronic negative self-talk. Diagnostically consistent with MDD with anxious distress vs persistent depressive disorder as well as QUYEN, social anxiety and PTSD. May be component of trauma-related cluster B traits with high emotionally reactivity and difficulty regulating this. She is deemed unstable and requires psychiatric hospitalization for diagnostic clarification, safety and stabilization, medication management and development of further coping skills. MNPR due to significant social anxiety and discomfort around peers 07/23/22: Mood improving, denies SI and has been active in groups. Family meeting to be held today. [address], expires tomorrow evening. [place] to require ongoing hospitalization to ensure she is safely tolerating the initiation of fluoxetine. So far is tolerating well. (1) Suicide attempt by acetaminophen overdose: (2) MDD (major depressive disorder), recurrent episode, severe: (3) Generalized anxiety disorder with panic attacks: (4) Post traumatic stress disorder (PTSD): (5) Self-harming behavior: Plan 07/23/22: Continue with fluoxetine 20mg qd. 07/22/2022: Discontinue sertraline. Start fluoxetine 20mg qd. 07/21/2022: The patient was admitted to the [facility] ([facility]) on q15 min checks (behavioral with suicide precautions) for safety. The patient will participate in group, recreational, and milieu therapies and will be offered additional individual and family sessions as clinically appropriate. -[place] BPD screen -Continue with sertraline 50mg qd for now -She will discuss with family possible past medication trials in family members that have been helpful -Consider augmentation with Wellbutrin given possible past benefit Inventory Assets Strengths: supportive relationships, willing to get treatment, good rapport with outpt providers, resilient/trauma survivor Needs: safety and stabilization, medication adjustment, additional coping skills, increased outpatient services Suicide Risk Level Suicide Risk Level: Moderate (q15 min suicide checks) (severe depression with suicide attempt prior to admission but mood improving and feels safe in the hospital, able to safety contract and agrees to let nursing/staff know should they develop plan, intent or feel unable to remain safe.) Suicide Risk Level Comments: Risk Factors Assessment Male: No : Yes Do You Have Access To A Gun?: No Health Problems: No Mental Health Diagnoses: Yes Substance Use Disorders: No Previous Attempt: Yes Family History of Suicide: No Previous Psychiatric Hospitalization: No Protective Factors Assessment Employed: Yes (Part-time at [employer]) Stable Relationships: Yes Supportive Family: Yes Good Rapport with Provider: Yes Interval History Identifying Information KENISHA DAN is a 27-year-old F who currently lives in [place] with her mom and step-dad and brother, has a history of depression and PTSD, and was admitted on 07/21/22 09:40 on a 201 voluntary commitment for suicide attempt via overdose. Chief Complaint "I'm pretty good". Review of Systems Sleep Information Total Hours of Sleep: 5.5 Meal Information Percent Meal Consumed - Breakfast: 50 Percent Meal Consumed - Lunch: 100 Percent Meal Consumed - Dinner: 100 Subjective Subjective Patient was seen & assessed and interval progress reviewed with treatment team nursing and social work. Attended all groups last evening and so far today. Feels her mood has improved and denies SI. No side effects from the fluoxetine. Family meeting scheduled for today. Reading a book between groups. Eating well. Had some trouble falling asleep but denies being due to anxiety or depression, feels it was harder due to be in the hospital and away from her usual environment. Physical Exam Psychiatric Orientation: alert and oriented x 3 Apperance: appropriately dressed and + disheveled Eye Contact: good eye contact Motor Behavior: no abnormal motor movements Speech: normal rate/rhythm/volume of speech (soft spoken ) Affect: + constricted affect Mood: + depressed mood and + anxious mood Thought Process: goal directed thought process Thought Content: reality based without delusions Suicidal Thoughts: denies suicidal plan and denies suicidal intent; + reports suicidal thoughts (s/p overdose ) Homicidal Thoughts: denies homicidal thoughts Hallucinations: no auditory hallucinations and no visual hallucinations Cognition: recent memory grossly intact, remote memory grossly intact, attention grossly intact and language grossly intact Estimated Intelligence: consistent with education level Insight: + limited insight Judgement: + limited judgement Vital Signs (Past 24 Hours) Last Vital Signs Temp 36.8 C 07/23/22 06:35 Pulse 76 07/23/22 06:36 Resp 16 07/23/22 06:35 BP 111/76 07/23/22 06:36 Pulse Ox 97 07/21/22 10:17 O2 Del Method 07/21/22 10:17 Results & Data ([facility]) Current Inpatient Medications Current Inpatient Medications: Current Inpatient Medications Al Hydrox/Mg Hydrox/Simethicone (Aluminum/Magnesium Susp 30 Ml Udc) 30 ml PO Q4H PRN PRN Reason: GI Upset Stop: 08/20/22 10:14 Bismuth Subsalicylate (Bismuth Subsalicylate Liqd 236 Ml) 15 ml PO PRN PRN PRN Reason: Loose Stool Stop: 08/20/22 10:14 Fluoxetine HCl (Fluoxetine Hcl 20 Mg Cap) 20 mg PO QAM FAN Stop: 08/21/22 10:14 Last Admin: 07/23/22 08:42 Dose: 20 mg Hydroxyzine HCl (Hydroxyzine Hcl 25 Mg Tab) 50 mg PO HSZ PRN PRN Reason: Insomnia Stop: 08/20/22 10:14 Last Admin: 07/21/22 21:06 Dose: 50 mg Hydroxyzine HCl (Hydroxyzine Hcl 25 Mg Tab) 25 mg PO Q4H PRN PRN Reason: Anxiety Stop: 08/20/22 10:14 Ibuprofen (Ibuprofen 600 Mg Tab) 600 mg PO Q8H PRN PRN Reason: pain Stop: 08/21/22 10:25 Magnesium Hydroxide (Magnesium Hydroxide Susp 30 Ml Udc) 30 ml PO DAILY PRN PRN Reason: Constipation Stop: 08/20/22 10:14 Sodium Chloride (Sodium Chloride 0.65% Na Soln 45 Ml ([place]amas)) 1 - 2 sprays NA PRN PRN PRN Reason: Nasal Dryness/Congestion Stop: 08/20/22 10:14 Mental Health & Subst Abuse Tx Psychiatrist Name of Psychiatrist: Ajith Franz Psychiatrist's Time of Appointment with Psychiatrist: 9 AM Psychiatric Appointment Comment: [address], [place], [place] Therapist Name of Therapist: Quita Gerber [employer]working [employer] Name of Stoneworking Belt Sander: None Post Discharge Appointments Primary Care Physician Name Of Family Doctor/PCP: Valentino Galindo [facility] Time of Appointment with PCP: 10:45 AM Provider Appointment Comment: [address] [place] [address] Contact Information [facility] [place], [address] (1) Suicide attempt by acetaminophen overdose Encounter type: initial encounter Qualified Code(s): T39.1X2A - Poisoning by 4-Aminophenol derivatives, intentional self-harm, initial encounter
--- NOTE | 2022-07-24 08:36 | Discharge Summary ---
Date of Service July 24, 2022 History of Present Illness Kenisha presents for psychiatric admission for worsening depression and suicide attempt via overdose of acetaminophen. She presented to the ED yesterday at the recommendation of her therapist after reaching out after ingesting approximately 30 tabs of acetaminophen 500mg and drinking some alcohol. She recalls counting the tabs but thinks it could have been less than 30 noting "it was a good handful". She had researched ways to using Tylenol, "in that moment" and learned it takes 15,00mg to cause serious harm to the liver. She has experienced chronic SI intermittently for many years but decided to pursue it in that moment due to an argument with her mom and feeling like "she pointed out a lot of my self-esteem issues" that have built up over time in addition to "self deprecating thoughts I provide myself". She struggled with her mom's advice to try to work through her depression as this made her feel like "everyone else is able to get over their depression but me" and drank vodka for "liquid courage" and then decided to take the tylenol. After taking the tylenol "I had a moment of realizing what I did and a brief moment of regretting it" so she reached out to her therapist. She is now regretful of the attempt though continues to feel "numb". She has a lot of chronic self-deprecating thoughts about being a failure, not being as independent as she believes she should be, and not liking aspects of her physical appearance. She started seeing a provider at [facility] about one month ago. She has been cross- tapering from Paxil to sertraline. The sertraline dose was increased to 50mg on 07/17/2022. She endorses chronic depressive symptoms including tearfulness, anhedonia, decreased motivation, self-guilt, helplessness, hopelessness, decreased energy, decreased appetite, and increased sleep. Intermittent suicidal thoughts over the years when depression is especially severe. She also endorses symptoms of anxiety including generalized worries, avoidance (especially driving), discomfort in social settings, easily overwhelmed and panic attacks every few months with SOB. Psychiatric ROS notable for no current nor history of symptoms of justin, psychosis, PTSD, OCD. History of self-harm via cutting with a razor on her arms, last was on Renea and as a teenager tried to maintain low weight for athletics through restricting but none since then. No history of binging nor purging. Physical Exam Vital Signs (Past 24 Hours) Last Vital Signs Temp 36.6 C 07/24/22 06:37 Pulse 75 07/24/22 06:38 Resp 16 07/24/22 06:37 BP 117/81 07/24/22 06:38 Pulse Ox 97 07/21/22 10:17 O2 Del Method 07/21/22 10:17 See admission H&P and DOD summary. Principal Diagnosis Major Depressive Disorder Psychiatric Data See daily stay summary. In short, patient was engaged with the social/therapeuti c milieu of the unit, safety was maintained and the patient was cooperative with care. She put in 72 hour notice, largely driven by anxiety and being away from home, which on the evening of 07/24/2022 and she was not felt to meet 302 criteria for extended involuntary hospitalization as she participated in groups, started medication, and engaged in a family meeting and safety planning and al lowed coordination with her outpatient providers. Medication changes included discontinuation of sertraline and initiation of fluoxetine and they tolerated this well. Reviewed alternatives to self-harm to cope with emotional distress. Recommend ongoing fear hierarchy/exposure and CBT/DBT therapy in the outpatient setting. A family session was held and safety plan was completed prior to discharge. She actively and insightfully participated in safety planning and in discussions about ways to seek support and recognizing warning signs and utilizing coping skills. Reviewed mobile apps that could be used for additional ways to have their safety plan and contacts easily available should thoughts of SI re-emerge in the future. Reviewed importance of seeking emergency care should SI intensify, worsen or should they feel unsafe in the future which they agree to do. On the day of discharge she stated her mood was "good" and remained future- oriented including seeing her dog, working on art projects, seeing her family and engaging in aftercare appointments for psychiatry and therapy. Day of Discharge Assessment Today the patient voices readiness for discharge. They note improvement in mood and anxiety. They deny thoughts of harm to self or others. Thoughts are organized and they are clinically improved from admission. There is no evidence of psychosis. They improved in the hospital with support and medication adjustments. They agree to take medications as prescribed and keep follow-up appointments. At the time of the discharge they are deemed to be stable and appropriate for outpatient level of care. They are not deemed to be at imminent risk of harm to self or others. They are aware of emergency and crisis services. Knows to call 911 or go to nearest emergency care center if in a crisis which cannot be handled as an outpatient. Transition of Care Transition Of Care Record: was reviewed with the patient Advance Directives Advance Directives Information Provided: Yes Advance Directives: No Mental Health Advance Directive: No Advance Directives on File: No Living Will: No Power of Cotton Inspector: No Advance Directives Reason:: Declines as Mental Health Visit. Suicide Risk Level Suicide Risk Level Comments: Acute risk is low given improvement in mood and denial of SI, lack of access to lethal means, improvement in sleep, hopefulness, decrease in self-deprecating thoughts. Chronic risk is low to moderate given some non-modifiable risk factors: psychiatric co-morbid diagnoses, prior attempt, hx self-harm, emotional reactivity, cluster B traits, childhood trauma but also with protective factors including: employed, good social support from family, sense of responsibility to family and social supports, outpatient care in place, positive coping skills, positive problem solving, capacity to establish therapeutic alliance, willingness to engage with treatment, capacity for self-observation and good rapport with outpatient providers. Counseled on ways to reduce acute and chronic risk including engaging with outpatient providers, using safety plan if needed, utilizing supports, taking medication, and using coping skills. Modifiable risk factors of SI and depression were addressed during hospitalization through development of new coping skills, family meeting, safety planning, and medication adjustments. Risk Factors Assessment Male: No : Yes Do You Have Access To A Gun?: No Health Problems: No Mental Health Diagnoses: Yes Substance Use Disorders: No Previous Attempt: Yes Family History of Suicide: No Previous Psychiatric Hospitalization: No Hopelessness: No Protective Factors Assessment Employed: Yes (Part-time at [employer]) Stable Relationships: Yes Supportive Family: Yes Good Rapport with Provider: Yes Discharge Data Lab Results 07/20/22 07/20/22 07/20/22 19:40 19:40 19:40 WBC RBC Hgb Hct MCV MCH MCHC RDW Std Deviation RDW Coeff of Lenin Plt Count MPV Immature Gran % (Auto) Neut % (Auto) Lymph % (Auto) [place] % (Auto) Eos % (Auto) Baso % (Auto) Neut # (Auto) Lymph # (Auto) [place] # (Auto) Eos # (Auto) Baso # (Auto) Immature Gran # (Auto) PT INR APTT PTT Ratio Sodium Potassium Chloride Carbon Dioxide Anion Gap BUN Creatinine Est Cr Clr Drug Dosing Est GFR ( Amer) Est GFR (Non-Af Amer) BUN/Creatinine Ratio Glucose Calcium Total Bilirubin AST ALT Alkaline Phosphatase Total Protein Albumin Globulin Albumin/Globulin Ratio TSH Urine Color Yellow Urine Appearance Clear Urine pH 6.0 Ur Specific [place] 1.008 Urine Protein Negative Urine Glucose (UA) Negative Urine Ketones Negative Urine Blood Negative Urine Nitrite Negative Urine Bilirubin Negative Urine Urobilinogen Negative Ur Leukocyte Esterase Negative Urine Test Negative Salicylates Urine Opiates Screen Neg Ur Methadone, Qual Neg Acetaminophen Urine Barbiturates Neg Ur Phencyclidine (PCP) Neg U Amphetamin/Meth Scrn Neg MDMA (Ecstasy) Screen Neg U Benzodiazepines Scrn Neg Ur Cocaine Metabolite Neg U Marijuana (THC) Screen Neg Ethyl Alcohol mg/dL SARS-CoV-2, RNA, NAAT 07/20/22 07/20/22 07/20/22 19:53 19:53 19:53 WBC 10.00 RBC 4.51 Hgb 13.7 Hct 41.0 MCV 90.9 MCH 30.4 MCHC 33.4 RDW Std Deviation 41.6 RDW Coeff of Lenin 12.4 Plt Count 389 MPV 10.7 Immature Gran % (Auto) 0.3 Neut % (Auto) 67.6 Lymph % (Auto) 22.3 [place] % (Auto) 6.2 Eos % (Auto) 2.7 Baso % (Auto) 0.9 Neut # (Auto) 6.76 H Lymph # (Auto) 2.23 [place] # (Auto) 0.62 Eos # (Auto) 0.27 Baso # (Auto) 0.09 Immature Gran # (Auto) 0.03 H PT INR APTT PTT Ratio Sodium 139 Potassium 3.0 L Chloride 106 Carbon Dioxide 26 Anion Gap 7 BUN 9 Creatinine 0.71 Est Cr Clr Drug Dosing 124.6 Est GFR ( Amer) 135.3 Est GFR (Non-Af Amer) 116.7 BUN/Creatinine Ratio 12.7 Glucose 92 Calcium 9.5 Total Bilirubin 0.3 AST 19 ALT 26 Alkaline Phosphatase 60 Total Protein 8.5 H Albumin 4.7 Globulin 3.8 Albumin/Globulin Ratio 1.2 TSH 1.379 Urine Color Urine Appearance Urine pH Ur Specific [place] Urine Protein Urine Glucose (UA) Urine Ketones Urine Blood Urine Nitrite Urine Bilirubin Urine Urobilinogen Ur Leukocyte Esterase Urine Test Salicylates Urine Opiates Screen Ur Methadone, Qual Acetaminophen Urine Barbiturates Ur Phencyclidine (PCP) U Amphetamin/Meth Scrn MDMA (Ecstasy) Screen U Benzodiazepines Scrn Ur Cocaine Metabolite U Marijuana (THC) Screen Ethyl Alcohol mg/dL SARS-CoV-2, RNA, NAAT 07/20/22 07/20/22 07/20/22 19:53 19:53 19:53 WBC RBC Hgb Hct MCV MCH MCHC RDW Std Deviation RDW Coeff of Lenin Plt Count MPV Immature Gran % (Auto) Neut % (Auto) Lymph % (Auto) [place] % (Auto) Eos % (Auto) Baso % (Auto) Neut # (Auto) Lymph # (Auto) [place] # (Auto) Eos # (Auto) Baso # (Auto) Immature Gran # (Auto) PT 10.4 INR 1.0 APTT 25.1 PTT Ratio 0.9 Sodium Potassium Chloride Carbon Dioxide Anion Gap BUN Creatinine Est Cr Clr Drug Dosing Est GFR ( Amer) Est GFR (Non-Af Amer) BUN/Creatinine Ratio Glucose Calcium Total Bilirubin AST ALT Alkaline Phosphatase Total Protein Albumin Globulin Albumin/Globulin Ratio TSH Urine Color Urine Appearance Urine pH Ur Specific [place] Urine Protein Urine Glucose (UA) Urine Ketones Urine Blood Urine Nitrite Urine Bilirubin Urine Urobilinogen Ur Leukocyte Esterase Urine Test Salicylates < 3.0 L Urine Opiates Screen Ur Methadone, Qual Acetaminophen < 3 L Urine Barbiturates Ur Phencyclidine (PCP) U Amphetamin/Meth Scrn MDMA (Ecstasy) Screen U Benzodiazepines Scrn Ur Cocaine Metabolite U Marijuana (THC) Screen Ethyl Alcohol mg/dL 47.5 H SARS-CoV-2, RNA, NAAT 07/20/22 07/20/22 20:58 23:34 WBC RBC Hgb Hct MCV MCH MCHC RDW Std Deviation RDW Coeff of Lenin Plt Count MPV Immature Gran % (Auto) Neut % (Auto) Lymph % (Auto) [place] % (Auto) Eos % (Auto) Baso % (Auto) Neut # (Auto) Lymph # (Auto) [place] # (Auto) Eos # (Auto) Baso # (Auto) Immature Gran # (Auto) PT INR APTT PTT Ratio Sodium Potassium Chloride Carbon Dioxide Anion Gap BUN Creatinine Est Cr Clr Drug Dosing Est GFR ( Amer) Est GFR (Non-Af Amer) BUN/Creatinine Ratio Glucose Calcium Total Bilirubin AST ALT Alkaline Phosphatase Total Protein Albumin Globulin Albumin/Globulin Ratio TSH Urine Color Urine Appearance Urine pH Ur Specific [place] Urine Protein Urine Glucose (UA) Urine Ketones Urine Blood Urine Nitrite Urine Bilirubin Urine Urobilinogen Ur Leukocyte Esterase Urine Test Salicylates Urine Opiates Screen Ur Methadone, Qual Acetaminophen 25 Urine Barbiturates Ur Phencyclidine (PCP) U Amphetamin/Meth Scrn MDMA (Ecstasy) Screen U Benzodiazepines Scrn Ur Cocaine Metabolite U Marijuana (THC) Screen Ethyl Alcohol mg/dL SARS-CoV-2, RNA, NAAT NEGATIVE Hospital Course (1) Suicide attempt by acetaminophen overdose: (2) MDD (major depressive disorder), recurrent episode, severe: (3) Generalized anxiety disorder with panic attacks: (4) Post traumatic stress disorder (PTSD): (5) Self-harming behavior: Plan 07/23/22: Continue with fluoxetine 20mg qd. 07/22/2022: Discontinue sertraline. Start fluoxetine 20mg qd. 07/21/2022: The patient was [facility] on q15 min checks (behavioral with suicide precautions) for safety. The patient will participate in group, recreational, and milieu therapies and will be offered additional individual and family sessions as clinically appropriate. -[place] BPD screen -Continue with sertraline 50mg qd for now -She will discuss with family possible past medication trials in family members that have been helpful -Consider augmentation with Wellbutrin given possible past benefit Mental Health & Subst Abuse Tx Psychiatrist Name of Psychiatrist: Ajith Franz Psychiatrist's Time of Appointment with Psychiatrist: 9 AM Psychiatric Appointment Comment: [address], [place], [place] Therapist Name of Therapist: Quita Gerber Windows Systems Engineer Name of Windows Systems Engineer: None Post Discharge Appointments Primary Care Physician Name Of Family Doctor/PCP: Valentino Galindo Primary Care Time of Appointment with PCP: 10:45 AM Provider Appointment Comment: [address] [place] [address] Contact Information Discharge Discharge Address: [address] [place] [address] [place], [place], [id number] Discharge Plan Discharge Items Patient Disposition: Home - Self-Care Reason For Visit: MDD Discharge Diagnosis: Major Depressive Disorder Activity: Resume your previous activity Non-emergency contact: Primary Care Provider, Psychiatrist and Therapist Call non-emergency contact if: you have any medication questions and your symptoms worsen Follow-up/Referrals: PCP,NO [Primary Care Provider] - Diet: Regular Addtl Attending Provider Instructions: Optional mobile apps we discussed: -Suicide safety plan -Virtual Hope Box -[place] SPECIAL CARE INSTRUCTIONS: 1. Follow through with your scheduled aftercare appointments. If unable to keep an appointment, please call to reschedule. 2. Take your medication only as prescribed. Medication should not be changed or stopped without the approval of your doctor. In the event of worsening symptoms or concerns about side effects, contact your doctor immediately. 3. Utilize new healthy coping skills, anger management skills, and stress management skills learned during your hospitalization. Journal feelings and process them with a support person. Identify stressors or situations that may result in relapse, deterioration or inappropriate behaviors and develop a plan to deal with those issues. 4. If your coping skills are ineffective and you are in crisis, contact your outpatient providers for direction. If unable to reach your providers, please call the [facility] CRISIS LINE AT , go to the [facility] walk-in center at [address] [place] [address], [facility], [place], or go to the closest Emergency Room. 5. Avoid alcohol and un-prescribed drugs. 6. You have been provided with the Mental Health Advance Directives Pamphlet for your review. 7. Your condition is stable for discharge to outpatient level of care, but recovery is an ongoing process. Ifthoughts to harm yourself or others return, follow the safety plan developed during your stay. Planning for a safe return home includes securing weapons. Our treatment team recommends weaponsbe removed from the home until your outpatient provider reassesses your progress. In rare cases where the items themselvescannot be removed, guns and ammunitionshould be secured separatelyand keys stored by a reliable personoutside of the home. If you were admitted on an involuntary commitment, the police or other legal authorities may be involved in this process. AFTERCARE APPOINTMENTS: * Please call your insurance company prior to your scheduled appointment to confirm your aftercare providers are covered. Take your insurance information to your appointments. WHO TO CALL AND WHEN: Medical Emergencies: For questions or emergencies related to your hospital stay, please contact the Inpatient Behavioral Health Unit at [phone]. A intake clinician is on-call 04/02 for the Behavioral Health Unit for emergencies At any time you feel your situation is an emergency, you may also call 911 immediately. Pending Studies at Discharge: No Stand-Alone Forms: My [facility] Medications and DC Order Prescriptions: New fluoxetine 20 mg Capsule 20 mg PO QAM 30 Days Qty: 30 0RF Discontinued sertraline 50 mg tablet 50 mg PO DAILY Discharge Orders: Discharge Order (Routine); Ordered 07/24/22 Ordered By: Herlinda Carroll Admission Data Admit Date/Time: 07/21/22 09:40 Attending Provider: Herlinda Carroll Admit Provider: Herlinda Carroll Primary Care Provider: PCP,NO Other Interventions: Discharge Summary Assessment (RN) Last Done: 07/24/22 13:37 PSY Interdisciplinary Discharge Planning Last Done: 07/24/22 13:37 Coding Level of Care Code 61820 D/C day mgmt > 30 min Diagnoses Suicide attempt by acetaminophen overdose T39.1X2A Encounter type: initial encounter MDD (major depressive disorder), recurrent episode, severe F33.2 Generalized anxiety disorder with panic attacks F41.1; F41.0 Post traumatic stress disorder (PTSD) F43.10 Self-harming behavior Time Spent (min) 35
[2022-07-24] MEDS: FLUoxetine HCL 20 MG CAP PO SCH (08:50)
== END 2022-07-24 14:20 | disposition home or self-care (01) | DRG 918 ==
LOC: ED 19:18 → 3S 07-21 09:40